=== PATIENT | female | born 1980 | race Two or more races ===

== ENCOUNTER 2024-03-18 06:59 | Emergency (ER) | payer MEDICAID ==
[~2024-03-18] VITALS: Ht 165.1 cm; Wt 70.0 kg
[2024-03-18 07:28] VITALS: O2SAT 100
[2024-03-18 07:50] LABS: BASOPHILS % 1.1 % (0.0-2.0); DIFFERENTIAL COMMENT 0; EOSINOPHILS % 4.4 % (0.0-5.0); HEMATOCRIT. 39.9 % (36.0-48.0); HEMOGLOBIN. 13.5 g/dL (12.0-16.0); LYMPHOCYTES % 38.9 % (20.0-50.0); MEAN CORPUSCULAR HEMOGLOBIN 25.6 pg (28.0-32.0); MEAN CORPUSCULAR HGB CONC 33.7 g/dL (31.0-37.0); MONOCYTES % 5.3 % (2.0-8.0); NEUTROPHILS % 50.3 % (40.0-76.0); PLATELET 179 x1000/uL (130-400); RED BLOOD CELL COUNT 5.25 mill/uL (4.2-5.4); RED CELL DISTRIBUTION WIDTH 12.9 % (11.6-14.6)
[2024-03-18 08:04] LABS: CHLORIDE 101 mEq/L (98-107); POTASSIUM 4.2 mEq/L (3.5-5.1); SODIUM 135 mEq/L (136-145)
[2024-03-18 08:05] LABS: CALCIUM 9.7 mg/dL (8.7-10.4); CARBON DIOXIDE 26 mEq/L (21-32)
[2024-03-18 08:10] LABS: CREATININE 0.9 mg/dL (0.6-1.0); GLUCOSE 206 mg/dL (70-105); UREA NITROGEN BLOOD 8 mg/dL (9-23)
[2024-03-18 08:12] LABS: ALANINE AMINOTRANSFERASE 15 IU/L (10-49); ALBUMIN 4.5 g/dL (3.2-4.8); ASPARTATE AMINOTRANSFERASE 20 IU/L (<34); BILIRUBIN TOTAL 0.9 mg/dL (0.1-1.0); PROTEIN TOTAL 8.3 g/dL (6.0-8.3)
[2024-03-18 08:13] LABS: HCG SCREEN NEGATIVE
[2024-03-18] MEDS ORDERED: AMLO5TAB88 MT (08:14)
[2024-03-18] MEDS ORDERED: CETI10CA2 MT (08:14)
[2024-03-18 08:25] LABS: BETA HYDROXYBUTYRATE < 0.1 mMol/L (0.0-0.3)
[2024-03-18] MEDS: CETIRIZINE 10MG TABLET PO SCH (08:38)
[2024-03-18 08:44] VITALS: BP 146/87; PULSE 88; RESP 18; TEMP 98.5
[2024-03-18 09:15] LABS: CLARITY URINE CLEAR (CLEAR); COLOR URINE YELLOW (YELLOW); GLUCOSE URINE NEGATIVE (NEGATIVE); KETONES URINE NEGATIVE (NEGATIVE); LEUKOCYTE ESTERASE URINE 2+ (NEGATIVE); NITRITE URINE NEGATIVE (NEGATIVE); OCCULT BLOOD URINE NEGATIVE (NEGATIVE); PH URINE 5.5 (4.5-8.0); PROTEIN URINE NEGATIVE (NEGATIVE); UROBILINOGEN URINE 0.2 E.U./dL (0.2-1.0)
[2024-03-18 09:42] LABS: SQUAMOUS EPITHELIAL CELL URINE 3+ /lpf (RARE/1+)
[2024-03-18 09:43] LABS: MUCUS URINE TRACE /lpf (< = 2+)
[2024-03-18 09:44] LABS: BACTERIA URINE TRACE; RBC URINE NONE SEEN /hpf (0-2); WBC URINE 0-2 /hpf (0-2); YEAST URINE RARE
== END 2024-03-18 12:42 | disposition home or self-care (01) ==
LOC: ER 06:59
DX: E11.65 Type 2 diabetes mellitus with hyperglycemia (principal); L91.0 Hypertrophic scar; H10.10 Acute atopic conjunctivitis, unspecified eye; I10 Essential (primary) hypertension; Z98.890 Other specified postprocedural states
CPT/HCPCS: 36415; 80053; 81003; 81025; 82010; 82962; 84703; 85025; 99283